=== PATIENT | male | born 1980 | race Caucasian/White ===

== ENCOUNTER 2020-09-12 18:20 | Observation (INO) | payer OTHER ==
--- NOTE | 2020-09-12 19:04 | XR ---
EXAMINATION TYPE: XR chest 2V DATE OF EXAM: 09/12/2020 COMPARISON: NONE HISTORY: Dysrhythmia TECHNIQUE: 3 views FINDINGS: There is no heart failure nor confluent pneumonic infiltrate. Costophrenic angles are clear . There are no hilar masses. There are chest leads. Bony thorax is intact. IMPRESSION: Normal chest.
[2020-09-12 20:50] LABS: Basophils # (A) 0.1 k/uL (0-0.2); Basophils % (A) 1 %; Eosinophils # (A) 0.5 k/uL (0-0.7); Eosinophils % (A) 4 %; HCT 49.6 % (39.0-53.0); HGB 17.5 gm/dL (13.0-17.5); Lymphocytes % (A) 37 %; MCH 31.9 pg (25.0-35.0); MCHC 35.4 g/dL (31.0-37.0); MCV 90.1 fL (80.0-100.0); Mean Platelet Volume 7.2; Monocytes # (A) 0.7 k/uL (0-1.0); Monocytes % (A) 6 %; Neutrophils # (A) 5.3 k/uL (1.3-7.7); Neutrophils % (A) 49 %; Platelet Count 336 k/uL (150-450); RDW 12.4 % (11.5-15.5); WBC 10.8 k/uL (3.8-10.6)
[2020-09-12 20:58] LABS: ALT 31 U/L (4-49); AST 36 U/L (17-59); African American GFR (CKD) >90 (>60 ml/min/1.73 sqM); Alkaline Phosphatase 66 U/L (38-126); Anion Gap 11 mmol/L; Blood Urea Nitrogen 15 mg/dL (9-20); Calcium 9.7 mg/dL (8.4-10.2); Carbon Dioxide 25 mmol/L (22-30); Chloride 105 mmol/L (98-107); Glucose 86 mg/dL (74-99); Magnesium 1.9 mg/dL (1.6-2.3); Non-African American GFR(CKD) 89 (>60 ml/min/1.73 sqM); Potassium 3.9 mmol/L (3.5-5.1); Sodium 141 mmol/L (137-145); Total Bilirubin 0.4 mg/dL (0.2-1.3); Total Protein 8.1 g/dL (6.3-8.2)
[2020-09-12 21:07] LABS: INR 0.9 (<1.2); Partial Thromboplastin Time 22.7 sec (22.0-30.0); Prothrombin Time 9.5 sec (9.0-12.0)
[2020-09-12] MEDS ORDERED: DILTIAZEM DRIP BOLUS FROM BAG 1 MG SOLN IV ONE (21:20)
[2020-09-12] MEDS ORDERED: HEPARIN SODIUM 1,000 UN/ML (10ML VL) IV ONE (21:20)
[2020-09-12] MEDS ORDERED: METOPROLOL TARTRATE 5 MG/5 ML VIAL IVP STA (21:20)
[2020-09-12] MEDS ORDERED: NALOXONE 0.4 MG/ML 1 ML VIAL IV PRN (21:34)
--- NOTE | 2020-09-12 21:34 | ED ---
Arrhythmia/Palpitations HPI - General Chief Complaint: Arrhythmia/Palpitations Stated Complaint: palpitations Time Seen by Provider: 09/12/20 18:25 Source: patient Mode of arrival: wheelchair Limitations: no limitations - History of Present Illness Initial Comments: She is a 39-year-old male with past history of A. fib who presents emergency Department with palpitations. Patient states he has a history of A. fib. 6 years ago he had an episode which took a [facility]. He was diagnosed with A. fib and started on atenolol. He was supposed to be cardioverted however reports that he came out of the rhythm spontaneously. He saw a diesel engine fitter at that time and has taken his atenolol 25 mg twice daily ever since then. He is only on an aspirin daily. States that he hasn't had any further issues with abnormal heart rhythm. He has not followed up with cardiology. Reports that approximately 20 minutes prior to hospital arrival he began having palpitations which felt like A. fib again. Denies missing any doses of his medications. indications to anticoagulation. No chest pain. No history of coronary disease. No other alleviating, precipitating or modifying factors - Related Data Home Medications Medication Instructions Recorded Confirmed Aspirin EC [Ecotrin Low Dose] 81 mg PO HS 09/12/20 09/12/20 atenoloL [Atenolol] 25 mg PO BID 09/12/20 09/12/20 Allergies Allergy/AdvReac Type Severity Reaction Status Date / Time No Known Allergies Allergy Verified 09/12/20 21:43 Review of Systems ROS Statement: Those systems with pertinent positive or pertinent negative responses have been documented in the HPI. ROS Other: All systems not noted in ROS Statement are negative. Past Medical History Past Medical History: Atrial Fibrillation History of Any Multi-Drug Resistant Organisms: None Reported Past Surgical History: No Surgical Hx Reported Past Psychological History: Anxiety Smoking Status: Current every day smoker Past Alcohol Use History: Occasional Past Drug Use History: Marijuana General Exam Limitations: no limitations Course Vital Signs 09/12/20 09/12/20 09/12/20 18:23 20:09 23:29 Temperature 97.8 F Pulse Rate 73 106 H 88 Respiratory 18 16 16 Rate Blood Pressure 137/88 133/86 124/85 O2 Sat by Pulse 100 100 98 Oximetry EKG Findings - EKG Comments: EKG Findings:: EKG demonstrates A. fib with rapid ventricular rate. Rate of 114. QRS 76. QTC of 383. No acute ST segment elevations or depressions Medical Decision Making - Medical Decision Making Upon arrival the patient was placed into room 16. Thorough history and physical exam was performed. Laboratory studies were obtained. Patient sent for chest x-ray. He does have a consistent rate of anywhere between 105 and 125. Patient is started on a Cardizem drip at 5 mg/hr with a bolus of 10 mg. recommended hospital admission for which the patient did agree to. He has no contraind ications to endocrine patient therefore he is placed on a heparin drip. Patient admitted. Spoke with Naomi from [facility] who agreed to admit the patient. Patient awaiting a bed on the floor. - Lab Data Result diagrams: 09/12/20 18:42 09/12/20 18:42 Lab Results 09/12/20 09/12/20 09/12/20 Range/Units 18:42 18:42 18:42 WBC 10.8 H (3.8-10.6) k/uL RBC 5.50 (4.30-5.90) m/uL Hgb 17.5 (13.0-17.5) gm/dL Hct 49.6 (39.0-53.0) % MCV 90.1 (80.0-100.0) fL MCH 31.9 (25.0-35.0) pg MCHC 35.4 (31.0-37.0) g/dL RDW 12.4 (11.5-15.5) % Plt Count 336 (150-450) k/uL MPV 7.2 Neutrophils % 49 % Lymphocytes % 37 % Monocytes % 6 % Eosinophils % 4 % Basophils % 1 % Neutrophils # 5.3 (1.3-7.7) k/uL Lymphocytes # 4.0 (1.0-4.8) k/uL Monocytes # 0.7 (0-1.0) k/uL Eosinophils # 0.5 (0-0.7) k/uL Basophils # 0.1 (0-0.2) k/uL PT 9.5 (9.0-12.0) sec INR 0.9 (<1.2) APTT 22.7 (22.0-30.0) sec Sodium 141 (137-145) mmol/L Potassium 3.9 (3.5-5.1) mmol/L Chloride 105 (98-107) mmol/L Carbon Dioxide 25 (22-30) mmol/L Anion Gap 11 mmol/L BUN 15 (9-20) mg/dL Creatinine 1.04 (0.66-1.25) mg/dL Est GFR (CKD-EPI)AfAm >90 (>60 ml/min/1.73 sqM) Est GFR (CKD-EPI)NonAf 89 (>60 ml/min/1.73 sqM) Glucose 86 (74-99) mg/dL Calcium 9.7 (8.4-10.2) mg/dL Magnesium 1.9 (1.6-2.3) mg/dL Total Bilirubin 0.4 (0.2-1.3) mg/dL AST 36 (17-59) U/L ALT 31 (4-49) U/L Alkaline Phosphatase 66 (38-126) U/L Troponin I (0.000-0.034) ng/mL Total Protein 8.1 (6.3-8.2) g/dL Albumin 5.0 (3.5-5.0) g/dL TSH 1.870 (0.465-4.680) mIU/L Influenza Type A (PCR) (Not Detectd) Influenza Type B (PCR) (Not Detectd) RSV (PCR) (Not Detectd) SARS-CoV-2 (PCR) (Not Detectd) 09/12/20 09/12/20 Range/Units 18:42 21:35 WBC (3.8-10.6) k/uL RBC (4.30-5.90) m/uL Hgb (13.0-17.5) gm/dL Hct (39.0-53.0) % MCV (80.0-100.0) fL MCH (25.0-35.0) pg MCHC (31.0-37.0) g/dL RDW (11.5-15.5) % Plt Count (150-450) k/uL MPV Neutrophils % % Lymphocytes % % Monocytes % % Eosinophils % % Basophils % % Neutrophils # (1.3-7.7) k/uL Lymphocytes # (1.0-4.8) k/uL Monocytes # (0-1.0) k/uL Eosinophils # (0-0.7) k/uL Basophils # (0-0.2) k/uL PT (9.0-12.0) sec INR (<1.2) APTT (22.0-30.0) sec Sodium (137-145) mmol/L Potassium (3.5-5.1) mmol/L Chloride (98-107) mmol/L Carbon Dioxide (22-30) mmol/L Anion Gap mmol/L BUN (9-20) mg/dL Creatinine (0.66-1.25) mg/dL Est GFR (CKD-EPI)AfAm (>60 ml/min/1.73 sqM) Est GFR (CKD-EPI)NonAf (>60 ml/min/1.73 sqM) Glucose (74-99) mg/dL Calcium (8.4-10.2) mg/dL Magnesium (1.6-2.3) mg/dL Total Bilirubin (0.2-1.3) mg/dL AST (17-59) U/L ALT (4-49) U/L Alkaline Phosphatase (38-126) U/L Troponin I <0.012 (0.000-0.034) ng/mL Total Protein (6.3-8.2) g/dL Albumin (3.5-5.0) g/dL TSH (0.465-4.680) mIU/L Influenza Type A (PCR) Not Detected (Not Detectd) Influenza Type B (PCR) Not Detected (Not Detectd) RSV (PCR) Not Detected (Not Detectd) SARS-CoV-2 (PCR) Not Detected (Not Detectd) Disposition Clinical Impression: Atrial fibrillation with RVR Disposition: ADMITTED IP TO THIS HOSP Condition: Stable Is patient prescribed a controlled substance at d/c from ED?: No Decision to Admit Reason: Admit from EC Decision Date: 09/12/20 Decision Time: 21:34
[2020-09-13] MEDS ORDERED: DILTIAZEM 125 MG in SODIUM CHLORIDE 0.9% 100 ML IV SCH ×2
[2020-09-13] MEDS: HEPARIN SOD,PORK IN 0.45% NACL 25,000 UNIT in 0.45% NACL 1 250ML.BAG IV SCH ×2 (01:30→20:04)
[2020-09-13 04:43] LABS: Basophils # (A) 0.1 k/uL (0-0.2); Basophils % (A) 1 %; Eosinophils # (A) 0.5 k/uL (0-0.7); Eosinophils % (A) 5 %; HCT 47.8 % (39.0-53.0); HGB 16.3 gm/dL (13.0-17.5); Lymphocytes # (A) 3.6 k/uL (1.0-4.8); Lymphocytes % (A) 38 %; MCH 30.9 pg (25.0-35.0); MCHC 34.2 g/dL (31.0-37.0); MCV 90.4 fL (80.0-100.0); Mean Platelet Volume 6.6; Monocytes # (A) 0.6 k/uL (0-1.0); Monocytes % (A) 7 %; Neutrophils # (A) 4.4 k/uL (1.3-7.7); Neutrophils % (A) 47 %; Platelet Count 314 k/uL (150-450); RBC 5.28 m/uL (4.30-5.90); RDW 12.5 % (11.5-15.5); WBC 9.4 k/uL (3.8-10.6)
[2020-09-13 05:22] LABS: African American GFR (CKD) >90 (>60 ml/min/1.73 sqM); Anion Gap 5 mmol/L; Blood Urea Nitrogen 14 mg/dL (9-20); Calcium 9.6 mg/dL (8.4-10.2); Carbon Dioxide 26 mmol/L (22-30); Chloride 108 mmol/L (98-107); Glucose 108 mg/dL (74-99); Non-African American GFR(CKD) >90 (>60 ml/min/1.73 sqM); Potassium 4.6 mmol/L (3.5-5.1); Sodium 139 mmol/L (137-145)
[2020-09-13] MEDS: NICOTINE 21MG/24HR PATCH TRANSDERM SCH (08:08)
[2020-09-13] MEDS ORDERED: HEPARIN SODIUM 1,000 UN/ML (10ML VL) IV PRN (09:49)
[2020-09-13] MEDS: atenoloL 25 MG TAB PO SCH ×2 (10:05→20:07)
--- NOTE | 2020-09-13 11:02 | P.HPIM ---
History of Present Illness H&P Date: 09/13/20 Chief Complaint: Palpitations Patient is a 39-year-old male with a known history of paroxysmal atrial fibrillation on atenolol and aspirin for the past 6 years and currently not on follow-up with cardiology as an outpatient came to ER with complaints of palpitations. Patient was diagnosed with atrial fibrillation 6 years ago and is on atenolol 25 mg twice a day. Patient was seen by Dr. Lyons previously. Patient says that he has been anxious about his dog and cat to be taken care of by someone as he is traveling outside.. Yesterday he did not bring in a water and started having palpitations. Palpitations started approximately 20 minutes prior to hospital arrival. No complaints of chest pain. No headache or dizziness or lightheadedness. No nausea vomiting or abdominal pain or diarrhea. No fever no chills. No cough or sputum production. Patient continues to smoke and does drink coffee once daily. Denied any other medical problems. No recent illnesses or sick contacts. Laboratory data reviewed. TSH within normal limits. Review of Systems Constitutional: Patient denies any fever or chills . No generalized weakness or weight loss. Abdomen: Patient denied nausea vomiting and diarrhea and abdominal pain. Cardiovascular: Patient denies any chest pain or short of breath. Patient did have palpitations. Respiratory: patient denied any cough is from production. No shortness of breath Neurologic: Patient denied any numbness or tingling headache. Musculoskeletal: Patient denies any complaints of joint swelling or deformity. Skin: Negative Psychiatric: Negative Endocrine: No heat or cold intolerance. No recent weight gain. Genitourinary: No dysuria or hematuria. All other 14 point ROS negative except the above Past Medical History Past Medical History: Atrial Fibrillation History of Any Multi-Drug Resistant Organisms: None Reported Past Surgical History: No Surgical Hx Reported Past Psychological History: Anxiety Smoking Status: Current every day smoker Past Alcohol Use History: Occasional Past Drug Use History: Marijuana Medications and Allergies Home Medications Medication Instructions Recorded Confirmed Type Aspirin EC [Ecotrin Low Dose] 81 mg PO HS 09/12/20 09/12/20 History atenoloL [Atenolol] 25 mg PO BID 09/12/20 09/12/20 History Allergies Allergy/AdvReac Type Severity Reaction Status Date / Time No Known Allergies Allergy Verified 09/12/20 21:43 Physical Exam Vitals: Vital Signs Temp Pulse Resp BP Pulse Ox 09/13/20 08:03 81 16 111/83 98 09/13/20 05:49 65 16 110/61 09/13/20 03:13 61 16 110/61 09/12/20 23:29 88 16 124/85 98 09/12/20 20:09 106 H 16 133/86 100 09/12/20 18:23 97.8 F 73 18 137/88 100 Intake and Output 09/12/20 09/13/20 09/13/20 22:59 06:59 14:59 Intake Total 85.222 Balance 85.222 Intake: Intake, IV Titration 85.222 Amount Heparin Sod,Pork in 0.45% 85.222 NaCl 25,000 unit In 0.45 % NaCl 1 250ml.bag @ 10.9 UNITS/KG/HR 9.987 mls/hr IV .Q24H [facility] Rx#: [id number] Other: Weight 91.626 kg PHYSICAL EXAMINATION: Patient is lying in the bed comfortably, no acute distress, awake alert and oriented.. HEENT: Normocephalic. Neck is supple. Pupils reactive. Nostrils clear. Oral cavity is moist. Ears reveal no drainage. Neck reveals no JVD, carotid bruits, or thyromegaly. CHEST EXAMINATION: Trachea is central. Symmetrical expansion. Lung faulkner clear to auscultation and percussion. CARDIAC: Normal S1, S2 with no gallops. No murmurs ABDOMEN: Soft. Bowel sounds normal. No organomegaly. No abdominal bruits. Extremities: reveal no edema. No clubbing or cyanosis Neurologically awake, alert, oriented x3 with well-coordinated movements. No focal deficits noted Skin: No rash or skin lesions. Psychiatric: Coperative. Nonsuicidal Musculoskeletal: No joint swelling or deformity. Normal range of motion. Results CBC & Chem 7: 09/13/20 04:25 09/13/20 04:25 Labs: Abnormal Lab Results - Last 24 Hours (Table) 09/12/20 09/13/20 09/13/20 Range/Units 18:42 04:25 08:10 WBC 10.8 H (3.8-10.6) k/uL APTT 32.7 H (22.0-30.0) sec Chloride 108 H (98-107) mmol/L Glucose 108 H (74-99) mg/dL Thrombosis Risk Factor Assmnt - DVT/VTE Prophylaxis DVT/VTE Prophylaxis: Pharmacologic Prophylaxis ordered Assessment and Plan Assessment: Atrial fibrillation with rapid ventricular rate Paroxysmal atrial fibrillation. On atenolol and aspirin at home. Ongoing nicotine addiction Possible anxiety DVT prophylaxis Plan: Patient was initially started on Cardizem drip. Heart rate is better controlled and patient was started back on atenolol 25 mg twice daily and continue with aspirin for anticoagulation. Patient was seen by cardiology. Continue with current management. Cardizem drip has been discontinued. Patient was counseled extensively for smoking cessation. Time with Patient: Greater than 30
--- NOTE | 2020-09-13 11:31 | ECHOF ---
Referral Reason:LV function MEASUREMENTS -------- HEIGHT: 180.3 cm WEIGHT: 91.6 kg BP: RVIDd: 2.8 cm (< 3.3) IVSd: 1.3 cm (0.6 - 1.1) LVIDd: 3.7 cm (3.9 - 5.3) LVPWd: 1.1 cm (0.6 - 1.1) IVSs: 1.7 cm LVIDs: 2.4 cm LVPWs: 1.7 cm LAESV Index (A-L): 19.25 ml/m Ao Diam: 2.8 cm (2.0 - 3.7) AV Cusp: 2.3 cm (1.5 - 2.6) LA Diam: 3.6 cm (2.7 - 3.8) RAP: 5.00 mmHg RVSP: 9.49 mmHg FINDINGS -------- Atrial fibrillation. This was a technically adequate study. The left ventricular size is normal. There is mild concentric left ventricular hypertrophy. Overa ll left ventricular systolic function is normal with, an EF between 55 - 60 %. Left ventricular [place] pressure cannot be estimated due to Atrial fibrillation. The right ventricle is normal in size. The left atrial size is normal. Normal LA size by volume 22+/-6 ml/m2. The right atrial size is normal. The aortic valve is trileaflet and appears structurally normal. The mitral valve is normal. There is trace mitral regurgitation. The tricuspid valve appears structurally normal. Trace tricuspid regurgitation present. Right ely tricular systolic pressure is normal at < 35 mmHg. There is no pulmonic regurgitation present. The aortic root size is normal. IVC Not well visulized. There is no pericardial effusion. CONCLUSIONS -------- 1. The left ventricular size is normal. 2. There is mild concentric left ventricular hypertrophy. 3. Overall left ventricular systolic function is normal with, an EF between 55 - 60 %. 4. Left ventricular fillimg pressure cannot be estimated due to Atrial fibrillation. 5. There is trace mitral regurgitation. 6. Trace tricuspid regurgitation present. 7. There is no pericardial effusion. LEAD TRAINER: Vero Collier RDCS
[2020-09-13] MEDS ORDERED: FLECAINIDE 50 MG TAB PO STA (11:33)
--- NOTE | 2020-09-13 11:40 | P.CRDCN ---
History of Present Illness Consult date: 09/13/20 History of present illness: HISTORY OF PRESENT ILLNESS: This is a 39-year-old male with a past medical history significant for atrial fibrillation, anxiety, and nicotine dependence. Patient used to follow in the office with Dr. Pearson but patient states he has not been to the office in over 5 years. We have been asked to see the patient in consultation for palpitations. Patient examined at the bedside in the emergency room. Patient reports he has a history of atrial fibrillation and he is prescribed atenolol. He states he has not had any problems with palpitations in the past few years. He states yesterday he began feeling his heart racing and felt as though he might back in atrial fibrillation so he came to the emergency room for further evaluation. Patient was found to be in 8 to her ablation with uncontrolled ventricular rate. Patient was started on IV heparin and also IV Cardizem. At the time of examination the patient remains atrophic relation with heart rate in the 70-80s. EKG reveals atrial fibrillation with RVR Chest xray negative for acute process Laboratory data: WBC 9.4. Hemoglobin 16.3. Platelet count 314. Sodium 139. Potassium 4.6. BUN 14. Creatinine 0.84. Troponin negative 3. Current home cardiac medications include aspirin 81 mg daily and atenolol 25 mg twice a day Echocardiogram completed reveals ejection fraction 55-60%, trace mitral regurgitation, and trace tricuspid regurgitation REVIEW OF SYSTEMS: At the time of my exam: CONSTITUTIONAL: Denies fever or chills. HEENT: Denies blurred vision, vision changes, or eye pain. Denies hemoptysis CARDIOVASCULAR: Denies chest pain. Denies orthopnea. Denies PND. Denies palpitations RESPIRATORY: Denies shortness of breath. GASTROINTESTINAL: Denies abdominal pain. Denies nausea or vomiting. HEMATOLOGIC: Denies bleeding disorders. GENITOURINARY: Denies any blood in urine. SKIN: Denies pruitis. Denies rash. PHYSICAL EXAM: VITAL SIGNS: Reviewed. GENERAL: Well-developed in no acute distress. HEENT: Head is normocephalic. Pupils are equal, round. Sclerae anicteric. Mucous membranes of the mouth are moist. Neck supple. No JVD or thyromegaly LUNGS: Respirations even and unlabored. Lungs essentially clear to auscultation bilaterally. HEART: Irregular rate and rhythm. S1 and S2 heard. ABDOMEN: Soft. Nondistended. Nontender. EXTREMITIES: Normal range of motion. No clubbing or cyanosis. Peripheral pulses intact. No lower extremity edema NEUROLOGIC: Awake and alert. Oriented x 3. ASSESSMENT: Palpitations Paroxysmal atrial fibrillation with RVR Anxiety Nicotine dependence PLAN: Continue telemetry monitoring Discontinue cardizem drip Continue atenolol Patient to receive 1 time dose of 300 mg of flecainide If patient does not convert to sinus mechanism, he will undergo cardioversion tomorrow with Dr. Cobian Continue IV heparin for possible cardioversion tomorrow Further recommendations pending patient course Nurse practitioner note has been reviewed by physician. Signing provider agrees with the documented findings, assessment, and plan of care. Past Medical History Past Medical History: Atrial Fibrillation History of Any Multi-Drug Resistant Organisms: None Reported Past Surgical History: No Surgical Hx Reported Past Psychological History: Anxiety Smoking Status: Current every day smoker Past Alcohol Use History: Occasional Past Drug Use History: Marijuana Medications and Allergies Home Medications Medication Instructions Recorded Confirmed Type Aspirin EC [Ecotrin Low Dose] 81 mg PO HS 09/12/20 09/12/20 History atenoloL [Atenolol] 25 mg PO BID 09/12/20 09/12/20 History Allergies Allergy/AdvReac Type Severity Reaction Status Date / Time No Known Allergies Allergy Verified 09/12/20 21:43 Physical Exam Vitals: Vital Signs Temp Pulse Resp BP Pulse Ox 09/13/20 08:03 81 16 111/83 98 09/13/20 05:49 65 16 110/61 09/13/20 03:13 61 16 110/61 09/12/20 23:29 88 16 124/85 98 09/12/20 20:09 106 H 16 133/86 100 09/12/20 18:23 97.8 F 73 18 137/88 100 Intake and Output 09/12/20 09/13/20 09/13/20 22:59 06:59 14:59 Intake Total 85.222 Balance 85.222 Intake: Intake, IV Titration 85.222 Amount Heparin Sod,Pork in 0.45% 85.222 NaCl 25,000 unit In 0.45 % NaCl 1 250ml.bag @ 10.9 UNITS/KG/HR 9.987 mls/hr IV .Q24H [facility] Rx#: [id number] Other: Weight 91.626 kg Results 09/13/20 04:25 09/13/20 04:25 Cardiac Enzymes 09/12/20 09/12/20 09/12/20 Range/Units 18:42 18:42 22:17 AST 36 (17-59) U/L Troponin I <0.012 <0.012 (0.000-0.034) ng/mL 09/13/20 Range/Units 00:57 AST (17-59) U/L Troponin I <0.012 (0.000-0.034) ng/mL Coagulation 09/12/20 09/13/20 Range/Units 18:42 08:10 PT 9.5 (9.0-12.0) sec APTT 22.7 32.7 H (22.0-30.0) sec CBC 09/12/20 09/13/20 Range/Units 18:42 04:25 WBC 10.8 H 9.4 (3.8-10.6) k/uL RBC 5.50 5.28 (4.30-5.90) m/uL Hgb 17.5 16.3 (13.0-17.5) gm/dL Hct 49.6 47.8 (39.0-53.0) % Plt Count 336 314 (150-450) k/uL Comprehensive Metabolic Panel 09/12/20 09/13/20 Range/Units 18:42 04:25 Sodium 141 139 (137-145) mmol/L Potassium 3.9 4.6 (3.5-5.1) mmol/L Chloride 105 108 H (98-107) mmol/L Carbon Dioxide 25 26 (22-30) mmol/L BUN 15 14 (9-20) mg/dL Creatinine 1.04 0.84 (0.66-1.25) mg/dL Glucose 86 108 H (74-99) mg/dL Calcium 9.7 9.6 (8.4-10.2) mg/dL AST 36 (17-59) U/L ALT 31 (4-49) U/L Alkaline Phosphatase 66 (38-126) U/L Total Protein 8.1 (6.3-8.2) g/dL Albumin 5.0 (3.5-5.0) g/dL Current Medications Generic Name Dose Route Start Last Admin Trade Name Freq PRN Reason Stop Dose Admin Atenolol 25 mg 09/13/20 09:00 09/13/20 10:05 Atenolol 25 Mg Tab PO 25 mg BID [facility] Administration Heparin Sodium (Porcine) 0 unit 09/13/20 09:49 09/13/20 09:58 Heparin Sodium 1,000 Un/Ml (10ml Vl) IV 4,580 unit PER PROTOCOL PRN Administration Low PTT Protocol Heparin Sodium/Sodium Chloride 250 mls @ 9.987 mls/hr 09/12/20 21:30 09/13/20 10:02 25,000 unit/ Sodium Chloride IV 13.9 units/kg/hr .Q24H [facility] 12.736 mls/hr Titration Protocol 10.9 UNITS/KG/HR Diltiazem HCl 125 mg/ Sodium 125 mls @ 5 mls/hr 09/13/20 00:00 09/13/20 00:52 Chloride IV 5 mg/hr .Q24H [facility] 5 mls/hr Administration 5 MG/HR Naloxone HCl 0.2 mg 09/12/20 21:34 Naloxone 0.4 Mg/Ml 1 Ml Vial IV Q2M PRN Opioid Reversal Nicotine 1 patch 09/13/20 09:00 09/13/20 08:08 Nicotine 21mg/24hr Patch TRANSDERM 1 patch DAILY [facility] Administration Intake and Output 09/12/20 09/13/20 09/13/20 22:59 06:59 14:59 Intake Total 85.222 Balance 85.222 Intake: Intake, IV Titration 85.222 Amount Heparin Sod,Pork in 0.45% 85.222 NaCl 25,000 unit In 0.45 % NaCl 1 250ml.bag @ 10.9 UNITS/KG/HR 9.987 mls/hr IV .Q24H [facility] Rx#: [id number] Other: Weight 91.626 kg 09/13/20 04:25 09/13/20 04:25
[2020-09-14] MEDS: NICOTINE 21MG/24HR PATCH TRANSDERM SCH (07:24)
[2020-09-14] MEDS: atenoloL 25 MG TAB PO SCH (07:24)
[2020-09-14 08:18] VITALS: BP 126/80; PULSE 78; RESP 17; TEMP 97.8
--- NOTE | 2020-09-14 14:03 | P.PN ---
Subjective Progress Note Date: 09/14/20 HISTORY OF PRESENT ILLNESS: This is a 39-year-old male with a past medical history significant for atrial fibrillation, anxiety, and nicotine dependence. Patient used to follow in the office with Dr. Pearson but patient states he has not been to the office in over 5 years. We have been asked to see the patient in consultation for palpitations. Patient examined at the bedside in the emergency room. Patient reports he has a history of atrial fibrillation and he is prescribed atenolol. He states he has not had any problems with palpitations in the past few years. He states yest erday he began feeling his heart racing and felt as though he might back in atrial fibrillation so he came to the emergency room for further evaluation. Patient was found to be in 8 to her ablation with uncontrolled ventricular rate. Patient was started on IV heparin and also IV Cardizem. At the time of examination the patient remains atrophic relation with heart rate in the 70-80s. EKG reveals atrial fibrillation with RVR Chest xray negative for acute process Laboratory data: WBC 9.4. Hemoglobin 16.3. Platelet count 314. Sodium 139. Potassium 4.6. BUN 14. Creatinine 0.84. Troponin negative 3. Current home cardiac medications include aspirin 81 mg daily and atenolol 25 mg twice a day Echocardiogram completed reveals ejection fraction 55-60%, trace mitral regurgitation, and trace tricuspid regurgitation 09/14/2020 Patient examined this point the bedside. Patient converted to sinus mechanism yesterday after receiving flecainide. He remains in sinus mechanism this morning. He denies chest pain or pressure. Denies shortness of breath. PHYSICAL EXAM: VITAL SIGNS: Reviewed. GENERAL: Well-developed in no acute distress. HEENT: Head is normocephalic. Pupils are equal, round. Sclerae anicteric. Mucous membranes of the mouth are moist. Neck supple. No JVD or thyromegaly LUNGS: Respirations even and unlabored. Lungs essentially clear to auscultation bilaterally. HEART: regular rate and rhythm. S1 and S2 heard. ABDOMEN: Soft. Nondistended. Nontender. EXTREMITIES: Normal range of motion. No clubbing or cyanosis. Peripheral pulses intact. No lower extremity edema NEUROLOGIC: Awake and alert. Oriented x 3. ASSESSMENT: Palpitations Paroxysmal atrial fibrillation with RVR Anxiety Nicotine dependence PLAN: Continue current cardiac medications Patient is stable for discharge from a cardiac standpoint. He is to follow up on an outpatient basis Nurse practitioner note has been reviewed by physician. Signing provider agrees with the documented findings, assessment, and plan of care. Objective - Vital Signs Vital signs: Vital Signs Temp 97.8 F 09/14/20 07:00 Pulse 78 09/14/20 07:00 Resp 17 09/14/20 07:00 BP 126/80 09/14/20 07:00 Pulse Ox 96 09/14/20 07:00 Intake & Output 09/13/20 09/14/20 09/14/20 18:59 06:59 18:59 Intake Total 85.222 Balance 85.222 Weight 91.626 kg Intake: Intake, IV Titration 85.222 Amount Heparin Sod,Pork in 0.45% 85.222 NaCl 25,000 unit In 0.45 % NaCl 1 250ml.bag @ 10.9 UNITS/KG/HR 9.987 mls/hr IV .Q24H [facility] Rx#: [id number] Other: Voiding Method Toilet Toilet # Voids 1 - Labs CBC & Chem 7: 09/13/20 04:25 09/13/20 04:25
== END 2020-09-14 09:21 | disposition home or self-care (01) ==
LOC: EC 18:20 → 6NMEDSUR 21:36
PROVIDERS: ADMIT Hospitalist; ATTEND Hospitalist
DX: I48.0 Paroxysmal atrial fibrillation (principal); F41.9 Anxiety disorder, unspecified; F17.200 Nicotine dependence, unspecified, uncomplicated; Z79.82 Long term (current) use of aspirin; Z79.899 Other long term (current) drug therapy; Z20.822 Contact with and (suspected) exposure to COVID-19; Z86.59 Personal history of other mental and behavioral disorders
CPT/HCPCS: 96368; 96365; 96366; 96367; 99285; 36415; 93005; 93306; 80053; 80048; 84443; 83735; 84484 ×2; 85025 ×2; 85610; 85730 ×2; 87636; 71046; G0378 ×3; S4990; J1644 ×2

== ENCOUNTER 2021-11-30 09:33 | Inpatient (IN) | payer OTHER ==
[2021-11-30] MEDS ORDERED: SODIUM CHLORIDE 0.9% 1,000 ML IV STA (10:12)
[2021-11-30] MEDS ORDERED: DILTIAZEM DRIP BOLUS FROM BAG 1 MG SOLN IV ONE (10:12)
[2021-11-30] MEDS ORDERED: HEPARIN SODIUM 1,000 UN/ML (10ML VL) IV ONE (10:13)
--- NOTE | 2021-11-30 10:15 | ED ---
General Adult HPI - General Chief complaint: Arrhythmia/Palpitations Stated complaint: A fib Time Seen by Provider: 11/30/21 09:53 Source: patient Mode of arrival: ambulatory Limitations: no limitations - History of Present Illness Initial comments: Dictation was produced using [employer] dictation software. please excuse any grammatical, word or spelling errors. Chief Complaint: 40-year-old male presents to emergency room for palpitations History of Present Illness: 40-year-old male past medical history of atrial fibrillation. Patient states that he's been diagnosed with paroxysmal A. fib 7 years ago. Patient was hospitalized 3-4 times for A. fib. Patient does not take any anticoagulation medications. Takes 25 mg of atenolol daily area patient does have established care with biomedical scientist. Patient denies any chest pain or shortness of breath. Patient believes that his symptoms began at 8 AM this morning. The ROS documented in this emergency department record has been reviewed and confirmed by me. Those systems with pertinent positive or negative responses have been documented in the HPI. All other systems are other negative and/or noncontributory. PHYSICAL EXAM: General Impression: Alert and oriented x3, not in acute distress HEENT: Normocephalic atraumatic, extra-ocular movements intact, pupils equal and reactive to light bilaterally, mucous membranes moist. Cardiovascular: Heart regular rate and rhythm Chest: Able to complete full sentences, no retractions, no tachypnea Abdomen: abdomen soft, non-tender, non-distended, no organomegaly Musculoskeletal: Pulses present and equal in all extremities, no peripheral edema Motor: no focal deficits noted Neurological: CN II-XII grossly intact, no focal motor or sensory deficits noted Skin: Intact with no visualized rashes Psych: Normal affect and mood ED course: 40-year-old well-appearing male presents emergency department for atrial fibrillation. Vital signs upon arrival shows findings within acceptable limits. EKG shows heart rate of 123. Patient on monitor is in A. fib with rapid ventricular rate with average rate between 120 and 140. Laboratory evaluation obtained. CBC metabolic panel is unremarkable. Troponin is negative. Patient started Cardizem and heparin. Patient reevaluated at bedside after several minutes and Cardizem with good rate control. Patient be admitted with consultation cardiology. EKG interpretation: Ventricular rate 123, A. fib with RVR, QS 80, QTC 363. , no QTC prolongation, no ST or T-wave changes noted. EKG consistent with atrial fibrillation with RVR. No signs of ischemia or infarction. - Related Data Home Medications Medication Instructions Recorded Confirmed Aspirin EC [Ecotrin Low Dose] 81 mg PO HS 09/12/20 11/30/21 atenoloL 25 mg PO BID 09/12/20 11/30/21 Allergies Allergy/AdvReac Type Severity Reaction Status Date / Time No Known Allergies Allergy Verified 11/30/21 10:34 Review of Systems ROS Statement: Those systems with pertinent positive or pertinent negative responses have been documented in the HPI. ROS Other: All systems not noted in ROS Statement are negative. Past Medical History Past Medical History: Atrial Fibrillation Additional Past Medical History / Comment(s): Hx of Afib with conversion to NSR approximately 5-6 yrs ago. History of Any Multi-Drug Resistant Organisms: None Reported Past Surgical History: No Surgical Hx Reported Past Anesthesia/Blood Transfusion Reactions: Unable to Obtain Additional Past Anesthesia/Blood Transfusion Reaction / Comment(s): Pt has never had anesthesia. Past Psychological History: Anxiety Smoking Status: Current every day smoker Past Alcohol Use History: Occasional Past Drug Use History: Marijuana - Past Family History Mother Family Medical History: No Reported History Additional Family Medical History / Comment(s): Mother is helathy Father Family Medical History: Blood Disorder Additional Family Medical History / Comment(s): Father had a blood clotting disorder. He had MIs. He at the age of 62 yrs. General Exam Limitations: no limitations Course Vital Signs 11/30/21 11/30/21 11/30/21 09:42 10:07 10:37 Temperature 98.2 F Pulse Rate 74 140 H 123 H Respiratory 18 20 18 Rate Blood Pressure 127/78 140/90 117/103 O2 Sat by Pulse 97 98 98 Oximetry 11/30/21 11:14 Temperature Pulse Rate 90 Respiratory 16 Rate Blood Pressure 140/90 O2 Sat by Pulse 98 Oximetry Medical Decision Making - Lab Data Result diagrams: 11/30/21 10:15 11/30/21 10:15 Lab Results 11/30/21 11/30/21 11/30/21 Range/Units 10:15 10:15 10:15 WBC 6.8 (3.8-10.6) k/uL RBC 5.68 (4.30-5.90) m/uL Hgb 16.8 (13.0-17.5) gm/dL Hct 51.3 (39.0-53.0) % MCV 90.4 (80.0-100.0) fL MCH 29.6 (25.0-35.0) pg MCHC 32.7 (31.0-37.0) g/dL RDW 12.4 (11.5-15.5) % Plt Count 346 (150-450) k/uL MPV 7.0 Neutrophils % 56 % Lymphocytes % 30 % Monocytes % 7 % Eosinophils % 4 % Basophils % 1 % Neutrophils # 3.8 (1.3-7.7) k/uL Lymphocytes # 2.0 (1.0-4.8) k/uL Monocytes # 0.5 (0-1.0) k/uL Eosinophils # 0.3 (0-0.7) k/uL Basophils # 0.1 (0-0.2) k/uL Sodium 139 (137-145) mmol/L Potassium 4.9 (3.5-5.1) mmol/L Chloride 106 (98-107) mmol/L Carbon Dioxide 24 (22-30) mmol/L Anion Gap 9 mmol/L BUN 14 (9-20) mg/dL Creatinine 0.94 (0.66-1.25) mg/dL Est GFR (CKD-EPI)AfAm >90 (>60 ml/min/1.73 sqM) Est GFR (CKD-EPI)NonAf >90 (>60 ml/min/1.73 sqM) Glucose 109 H (74-99) mg/dL Calcium 9.7 (8.4-10.2) mg/dL Magnesium 2.1 (1.6-2.3) mg/dL Troponin I <0.012 (0.000-0.034) ng/mL Critical Care Time Critical Care Time: Yes Total Critical Care Time: 33 Disposition Clinical Impression: Atrial fibrillation with RVR Disposition: ADMITTED IP TO THIS HOSP Condition: Fair Referrals: Angel Navarro MD [Primary Care Provider] - 1-2 days Decision Time: 11:33
[2021-11-30 10:25] LABS: Basophils # (A) 0.1 k/uL (0-0.2); Basophils % (A) 1 %; Eosinophils # (A) 0.3 k/uL (0-0.7); Eosinophils % (A) 4 %; HCT 51.3 % (39.0-53.0); HGB 16.8 gm/dL (13.0-17.5); Lymphocytes % (A) 30 %; MCH 29.6 pg (25.0-35.0); MCHC 32.7 g/dL (31.0-37.0); MCV 90.4 fL (80.0-100.0); Monocytes # (A) 0.5 k/uL (0-1.0); Monocytes % (A) 7 %; Neutrophils # (A) 3.8 k/uL (1.3-7.7); Neutrophils % (A) 56 %; Platelet Count 346 k/uL (150-450); RBC 5.68 m/uL (4.30-5.90); RDW 12.4 % (11.5-15.5); WBC 6.8 k/uL (3.8-10.6)
[2021-11-30] MEDS: HEPARIN SOD,PORK IN 0.45% NACL 25,000 UNIT in 0.45% NACL 1 250ML.BAG IV SCH (10:27)
[2021-11-30] MEDS: DILTIAZEM 125 MG in SODIUM CHLORIDE 0.9% 100 ML IV SCH (10:40)
[2021-11-30 10:44] LABS: African American GFR (CKD) >90 (>60 ml/min/1.73 sqM); Anion Gap 9 mmol/L; Blood Urea Nitrogen 14 mg/dL (9-20); Calcium 9.7 mg/dL (8.4-10.2); Carbon Dioxide 24 mmol/L (22-30); Chloride 106 mmol/L (98-107); Glucose 109 mg/dL (74-99); Magnesium 2.1 mg/dL (1.6-2.3); Non-African American GFR(CKD) >90 (>60 ml/min/1.73 sqM); Potassium 4.9 mmol/L (3.5-5.1); Sodium 139 mmol/L (137-145)
[2021-11-30] MEDS ORDERED: NALOXONE 0.4 MG/ML 1 ML VIAL IV PRN (11:21)
--- NOTE | 2021-11-30 11:54 | XR ---
EXAMINATION TYPE: XR chest 1V portable DATE OF EXAM: 11/30/2021 COMPARISON: 09/12/2020 HISTORY: Heart palpitations TECHNIQUE: Single frontal view of the chest is obtained. FINDINGS: Heart size normal. No overt failure. Biapical pleural. No pleural effusion. No pneumothora x. Biapical pleural thickening. Mild hyperinflation. IMPRESSION: No acute process.
--- NOTE | 2021-11-30 13:09 | P.CRDCN ---
History of Present Illness History of present illness: This is a 40-year-old male with a past medical history significant for paroxysmal atrial fibrillation, anxiety, and nicotine dependence. Patient used to follow in the office with Dr. Pearson, last seen in 2013, He currently does not follow with a room service attendant. We have been asked to see the patient in consultation for atrial fibrillation with RVR. Patient presents to the ER with complaint of palpitations. 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 He states after this he began to have symptoms of palpitations. He states his symptoms are similar to when he's been in A. fib before and decided to present to the emergency department for further evaluation. Denies any shortness of breath, chest pain, lightheadedness, dizziness, syncope or near syncope. Denies history of CAD, [place], Stroke, Diabetes, Hypertension. He currently smokes marijuana and cigarettes 1 PPD. He occasionally drinks alcohol. DIAGNOSTICS: EKG reveals atrial fibrillation with RVR hr 123 Chest xray negative for acute process Laboratory data: CBC unremarkable, troponin negative, sodium 139, potassium 4.9, BUN 14, serum creatinine 0.9 Current home cardiac medications include aspirin 81 mg daily and atenolol 25 mg twice a day Echocardiogram 09/2020 revealed ejection fraction 55-60%, trace mitral regurgitation, and trace tricuspid regurgitation REVIEW OF SYSTEMS: At the time of my exam: CONSTITUTIONAL: Denies fever or chills. HEENT: Denies blurred vision, vision changes, or eye pain. Denies hemoptysis CARDIOVASCULAR: Denies chest pain. Denies orthopnea. Denies PND. Reports palpitations RESPIRATORY: Denies shortness of breath. GASTROINTESTINAL: Denies abdominal pain. Denies nausea or vomiting. HEMATOLOGIC: Denies bleeding disorders. GENITOURINARY: Denies any blood in urine. SKIN: Denies pruitis. Denies rash. PHYSICAL EXAM: VITAL SIGNS: Reviewed. GENERAL: Well-developed in no acute distress. HEENT: Head is normocephalic. Pupils are equal, round. Sclerae anicteric. Mucous membranes of the mouth are moist. Neck supple. No JVD or thyromegaly LUNGS: Respirations even and unlabored. Lungs essentially clear to auscultation bilaterally. HEART: Irregular rate and rhythm. S1 and S2 heard. ABDOMEN: Soft. Nondistended. Nontender. EXTREMITIES: Normal range of motion. No clubbing or cyanosis. Peripheral pulses intact. No lower extremity edema NEUROLOGIC: Awake and alert. Oriented x 3. ASSESSMENT: Palpitations Paroxysmal atrial fibrillation with RVR [id number] score 0 Anxiety Nicotine dependence PLAN: Continue IV Cardizem Continue telemetry monitoring Continue atenolol Continue IV heparin NPO after midnight if cardioversion is indicated Further recommendations pending patient course Nurse practitioner note has been reviewed by physician. Signing provider agrees with the documented findings, assessment, and plan of care. Past Medical History Past Medical History: Atrial Fibrillation Additional Past Medical History / Comment(s): Hx of Afib with conversion to NSR approximately 5-6 yrs ago. History of Any Multi-Drug Resistant Organisms: None Reported Past Surgical History: No Surgical Hx Reported Past Anesthesia/Blood Transfusion Reactions: Unable to Obtain Additional Past Anesthesia/Blood Transfusion Reaction / Comment(s): Pt has never had anesthesia. Past Psychological History: Anxiety Smoking Status: Current every day smoker Past Alcohol Use History: Occasional Past Drug Use History: Marijuana - Past Family History Mother Family Medical History: No Reported History Additional Family Medical History / Comment(s): Mother is helathy Father Family Medical History: Blood Disorder Additional Family Medical History / Comment(s): Father had a blood clotting disorder. He had MIs. He at the age of 62 yrs. Medications and Allergies Home Medications Medication Instructions Recorded Confirmed Type Aspirin EC [Ecotrin Low Dose] 81 mg PO HS 09/12/20 11/30/21 History atenoloL 25 mg PO BID 09/12/20 11/30/21 History Allergies Allergy/AdvReac Type Severity Reaction Status Date / Time No Known Allergies Allergy Verified 11/30/21 10:34 Physical Exam Vitals: Vital Signs Temp Pulse Resp BP Pulse Ox 11/30/21 11:14 90 16 140/90 98 11/30/21 10:37 123 H 18 117/103 98 11/30/21 10:07 140 H 20 140/90 98 11/30/21 09:42 98.2 F 74 18 127/78 97 Intake and Output 11/29/21 11/30/21 11/30/21 22:59 06:59 14:59 Other: Weight 93.123 kg Results 11/30/21 10:15 11/30/21 10:15 Cardiac Enzymes 11/30/21 Range/Units 10:15 Troponin I <0.012 (0.000-0.034) ng/mL CBC 11/30/21 Range/Units 10:15 WBC 6.8 (3.8-10.6) k/uL RBC 5.68 (4.30-5.90) m/uL Hgb 16.8 (13.0-17.5) gm/dL Hct 51.3 (39.0-53.0) % Plt Count 346 (150-450) k/uL Comprehensive Metabolic Panel 11/30/21 Range/Units 10:15 Sodium 139 (137-145) mmol/L Potassium 4.9 (3.5-5.1) mmol/L Chloride 106 (98-107) mmol/L Carbon Dioxide 24 (22-30) mmol/L BUN 14 (9-20) mg/dL Creatinine 0.94 (0.66-1.25) mg/dL Glucose 109 H (74-99) mg/dL Calcium 9.7 (8.4-10.2) mg/dL Current Medications Generic Name Dose Route Start Last Admin Trade Name Freq PRN Reason Stop Dose Admin Heparin Sodium (Porcine) 0 unit 11/30/21 10:13 Heparin Sodium 1,000 Un/Ml (10ml Vl) IV PER PROTOCOL PRN Low PTT Protocol Diltiazem HCl 125 mg/ Sodium 125 mls @ 10 mls/hr 11/30/21 10:15 11/30/21 10 :40 Chloride IV 5 mg/hr .[id number] [place] 5 mls/hr Administration 10 MG/HR Heparin Sodium/Sodium Chloride 250 mls @ 10 mls/hr 11/30/21 10:15 11/30/21 10:27 25,000 unit/ Sodium Chloride IV 10.738 units/kg/hr .Q24H [place] 10 mls/hr Administration Protocol 10.738 UNITS/KG/HR Sodium Chloride 1,000 mls @ 20 mls/hr 11/30/21 11:30 Saline 0.9% IV .Q24H [place] Naloxone HCl 0.2 mg 11/30/21 11:21 Naloxone 0.4 Mg/Ml 1 Ml Vial IV Q2M PRN Opioid Reversal Intake and Output 11/29/21 11/30/21 11/30/21 22:59 06:59 14:59 Other: Weight 93.123 kg Patient Weight 12/01/21 06:59 Weight 93.123 kg 11/30/21 10:15 11/30/21 10:15
[2021-11-30] MEDS: SODIUM CHLORIDE 0.9% 1,000 ML IV SCH (13:12)
[2021-11-30] MEDS: atenoloL 25 MG TAB PO SCH ×2 (13:13→21:16)
--- NOTE | 2021-11-30 16:41 | HP ---
HISTORY AND PHYSICAL DATE OF SERVICE: 11/30/2021 CHIEF COMPLAINT: Palpitations. HISTORY OF PRESENT ILLNESS: This 40-year-old gentleman with a past medical history of multiple medical problems, including atrial fibrillation and history of anxiety, being followed by Dr. Navarro in the outpatient setting, was complaining of severe palpitations. The patient came to [facility]. The patient was found to have atrial fibrillation with a fast ventricular rate. Heart rate was in the 140s. The patient was started on Cardizem drip. Patient is being monitored closely. There is no history of any chest pain, headache, loss of consciousness, seizures. PAST MEDICAL HISTORY: Atrial fibrillation. Reviewed. HOME MEDICATIONS: Reviewed. They include atenolol and aspirin. Doses are reviewed. ALLERGIES: NONE. FAMILY HISTORY: No history of heart disease or strokes in the family. SOCIAL HISTORY: History of smoking. REVIEW OF SYSTEMS: Fourteen-point review of systems negative except as mentioned earlier. PHYSICAL EXAMINATION: Pulse is 123, irregular, blood pressurentd_, respiration 18, pulse ox 98% on room air. HEENT: Conjunctivae normal. NECK: No jugular venous distention. CARDIOVASCULAR: S1, S2 muffled. Irregular. RESPIRATION: Breath sounds diminished at the bases. No rhonchi. No crackles. ABDOMEN: Soft, nontender. LEGS: No edema. No swelling. NERVOUS SYSTEM: Higher functions as mentioned earlier. No focal deficit. SKIN: No ulcer, rash, bleeding. JOINTS: No active deforming arthropathy. LYMPHATICS: No lymph node palpable in neck, axillae or groin. LABS: CBC, BMP noted. TSH is normal. ASSESSMENT: 1. Atrial ablation, paroxysmal, with a fast ventricular rate. 2. History of atrial fibrillation. 3. History of anxiety. RECOMMENDATIONS AND DISCUSSION: I recommend to continue current medications, continue with the monitoring, symptomatic treatment. Otherwise, continue with home medications, Cardizem drip, IV heparin. Cardiology consultation. Recent 2D echo showed normal ejection fraction. Prognosis is guarded. Further recommendations to follow. See orders for further details. MMODL / IJN: [id number] / MTDD
[2021-11-30] MEDS: HEPARIN SODIUM 1,000 UN/ML (10ML VL) IV PRN (21:15)
[2021-11-30] MEDS: NICOTINE 14MG/24HR PATCH TRANSDERM SCH (23:22)
[2021-12-01 02:42] LABS: Basophils # (A) 0.1 k/uL (0-0.2); Basophils % (A) 1 %; Eosinophils # (A) 0.4 k/uL (0-0.7); Eosinophils % (A) 5 %; HCT 52.2 % (39.0-53.0); Lymphocytes # (A) 3.4 k/uL (1.0-4.8); Lymphocytes % (A) 42 %; MCH 30.2 pg (25.0-35.0); MCHC 32.6 g/dL (31.0-37.0); MCV 92.6 fL (80.0-100.0); Mean Platelet Volume 6.9; Monocytes # (A) 0.5 k/uL (0-1.0); Monocytes % (A) 6 %; Neutrophils # (A) 3.7 k/uL (1.3-7.7); Neutrophils % (A) 45 %; Platelet Count 289 k/uL (150-450); RBC 5.64 m/uL (4.30-5.90); RDW 12.7 % (11.5-15.5); WBC 8.2 k/uL (3.8-10.6)
[2021-12-01 03:01] LABS: African American GFR (CKD) >90 (>60 ml/min/1.73 sqM); Anion Gap 6 mmol/L; Blood Urea Nitrogen 16 mg/dL (9-20); Calcium 9.3 mg/dL (8.4-10.2); Carbon Dioxide 27 mmol/L (22-30); Chloride 106 mmol/L (98-107); Glucose 97 mg/dL (74-99); Non-African American GFR(CKD) 86 (>60 ml/min/1.73 sqM); Sodium 139 mmol/L (137-145)
[2021-12-01 03:07] LABS: Potassium 5.1 mmol/L (3.5-5.1)
[2021-12-01] MEDS: DILTIAZEM 125 MG in SODIUM CHLORIDE 0.9% 100 ML IV SCH ×2 (03:10→11:08)
[2021-12-01] MEDS: atenoloL 25 MG TAB PO SCH ×2 (08:14→21:50)
[2021-12-01] MEDS: NICOTINE 14MG/24HR PATCH TRANSDERM SCH ×2 (08:52→11:08)
[2021-12-01] MEDS ORDERED: DILTIAZEM 5 MG/ML 5 ML VIAL IVP STA (08:57)
--- NOTE | 2021-12-01 09:02 | CA ---
Transthoracic Echo Report Name: Alec Rivera Age: 40 Gender: M : 1980 Exam Date: 11/30/2021 13:29 Exam Location: [facility] Ht (in): 69 Wt (lb): 205 Ordering Physician: Madison Melendez Attending/Referring Phys: Dock Associate Nadya Pierre RDCS Procedure CPT: Indications: A fib. HR currently controlled Cardiac Hx: Technical Quality: Fair Contrast 1: Total Dose (mL): Contrast 2: Total Dose (mL): MEASUREMENTS (Male / Female) Normal Values 2D ECHO LV Diastolic Diameter PLAX 4.0 cm 4.2 - 5.9 / 3.9 - 5.3 cm LV Systolic Diameter PLAX 2.0 cm IVS Diastolic Thickness 1.3 cm 0.6 - 1.0 / 0.6 - 0.9 cm LVPW Diastolic Thickness 1.2 cm 0.6 - 1.0 / 0.6 - 0.9 cm LV Relative Wall Thickness 0.6 RV Internal Dim ED PLAX 2.8 cm LA Volume 42.3 cm??? 18 - 58 / 22 - 52 cm??? M-MODE Aortic Root Diameter MM 3.7 cm LA Systolic Diameter MM 3.7 cm LA Ao Ratio MM 1.0 AV Cusp Separation MM 2.3 cm DOPPLER AV Peak Velocity 95.9 cm/s AV Peak Gradient 3.7 mmHg TR Peak Velocity 233.7 cm/s TR Peak Gradient 21.8 mmHg Right Ventricular Systolic Press 26.8 mmHg FINDINGS Left Ventricle Mildly increased septal wall thickness. Normal left ventricular systolic function with no obvious regional wall motion abnormalities. Left ventricular ejection fraction is estimated at 55-60 %. Right Ventricle Normal right ventricular size and function. Right ventricular systolic pressure within normal limits. Right Atrium Normal right atrial size. Left Atrium Normal left atrial size. No evidence for an atrial septal defect. Mitral Valve Structurally normal mitral valve. No mitral stenosis, regurgitation or prolapse. Aortic Valve Trileaflet aortic valve. No aortic valve stenosis or regurgitation. Tricuspid Valve Structurally normal tricuspid valve. Mild tricuspid regurgitation. Pulmonic Valve Trace pulmonic regurgitation. Pericardium No pericardial effusion. Aorta Normal size aortic root and proximal ascending aorta. CONCLUSIONS Normal LV size and systolic function with mild concentric LVH. No significant abnormality on the Doppler exam. No pericardial effusion Previewed by: Dr. Wally Wang MD (Electronically Signed) Final Date: 01 December 2021 09:01
--- NOTE | 2021-12-01 11:26 | P.PN ---
Subjective This is a 40-year-old male with a past medical history significant for paroxysmal atrial fibrillation, anxiety, and nicotine dependence. Patient used to follow in the office with Dr. Pearson, last seen in 2013, He currently does not follow with a floral department specialist. We have been asked to see the patient in consultation for atrial fibrillation with RVR. Patient presents to the ER with complaint of palpitations. 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 He states after this he began to have symptoms of palpitations. He states his symptoms are similar to when he's been in A. fib before and decided to present to the emergency department for further evaluation. Denies any shortness of breath, chest pain, lightheadedness, dizziness, syncope or near syncope. Denies history of CAD, [place], Stroke, Diabetes, Hypertension. He currently smokes marijuana and cigarettes 1 PPD. He occasionally drinks alcohol. 12/01/2021 Patient seen and examined at bedside, feeling well, however frustrated that he is still in A fib and missing a family trip to [place]. He continues to be in A fib HR 80s-120s. His cardizem drip was stopped overnight. Echo revealed EF 5560 percent, no significant wall motion or valvular abnormalities. No pericardial effusion PHYSICAL EXAM: VITAL SIGNS: Reviewed. GENERAL: Well-developed in no acute distress. HEENT: Neck supple. No JVD LUNGS: Respirations even and unlabored. Lungs essentially clear to auscultation bilaterally. HEART: Irregular rate and rhythm. S1 and S2 heard. ABDOMEN: Soft. Nondistended. Nontender. EXTREMITIES: Normal range of motion. No clubbing or cyanosis. Peripheral pulses intact. No lower extremity edema NEUROLOGIC: Awake and alert. Oriented x 3. ASSESSMENT: Palpitations Paroxysmal atrial fibrillation with RVR [id number] score 0 Anxiety Nicotine dependence PLAN: Restart IV Cardizem Continue telemetry monitoring Continue atenolol Continue IV heparin NPO after midnight if cardioversion is indicated Further recommendations pending patient course Nurse practitioner note has been reviewed by physician. Signing provider agrees with the documented findings, assessment, and plan of care. Objective - Vital Signs Vital signs: Vital Signs Temp 97.9 F 12/01/21 08:00 Pulse 120 H 12/01/21 08:00 Resp 18 12/01/21 08:00 BP 113/78 12/01/21 08:00 Pulse Ox 97 12/01/21 08:00 FiO2 Intake & Output 11/30/21 12/01/21 12/01/21 18:59 06:59 18:59 Intake Total 236 348.167 Balance 236 348.167 Weight 93.123 kg Intake: Intake, IV Titration 348.167 Amount Heparin Sod,Pork in 0.45% 108.167 NaCl 25,000 unit In 0.45 % NaCl 1 250ml.bag @ 10. 738 UNITS/KG/HR 10 mls/hr IV .Q24H [place] Rx#: [id number] Sodium Chloride 0.9% 1, 240 000 ml @ 20 mls/hr IV . Q24H [place] Rx#:[id number] Oral 236 Other: Voiding Method Toilet - Labs CBC & Chem 7: 12/01/21 02:34 12/01/21 02:34 Labs: Abnormal Lab Results - Last 24 Hours (Table) 12/01/21 Range/Units 02:34 APTT 53.2 H (22.0-30.0) sec
[2021-12-01] MEDS: HEPARIN SOD,PORK IN 0.45% NACL 25,000 UNIT in 0.45% NACL 1 250ML.BAG IV SCH (16:24)
[2021-12-01] MEDS: SODIUM CHLORIDE 0.9% 1,000 ML IV SCH (16:25)
--- NOTE | 2021-12-01 19:29 | P.PN ---
Subjective Progress Note Date: 12/01/21 This is a 40-year-old male who was recently admitted with atrial fibrillation RVR and being closely monitored by cardiology. Patient maintained on IV heparin drip along with Cardizem. Patient was rate controlled until this morning heart rate went up into the 120s and patient was placed back on Cardizem along with heparin with cardiology following. Patient reports he does not follow with a filer repairer in the outpatient setting and does not have any insurance and cannot afford this. Patient is extremely anxious as he was to leave for [place] on a family trip today. Patient also has been smoking approximately 1 pack per day cigarettes and will add nicotine packs and anxiety med as needed. Patient is afebrile and denies chest pain. Patient denies shortness of breath. Review of systems: Constitutional: No reports of fatigue, fever, or chills Cardiovascular: No reports of chest pain, reports palpitations Respiratory: No reports of shortness of breath or cough GI: no reports of nausea, no reports of of vomiting : No reports of dysuria or retention Neurovascular: no reports of weakness All medications have been reviewed Active Medications Alprazolam (Alprazolam 0.25 Mg Tab) 0.25 mg PO TID PRN PRN Reason: Anxiety Atenolol (Atenolol 25 Mg Tab) 25 mg PO BID [facility] Last Admin: 12/01/21 08:14 Dose: 25 mg Heparin Sodium (Porcine) (Heparin Sodium 1,000 Un/Ml (10ml Vl)) 0 unit IV PER PROTOCOL PRN; Protocol PRN Reason: Low PTT Last Admin: 11/30/21 21:15 Dose: 4,000 unit Heparin Sodium/Sodium Chloride (25,000 unit/ Sodium Chloride) 250 mls @ 10 mls/hr IV .Q24H [facility]; Protocol Last Titration: 11/30/21 21:16 Dose: 13.738 units/kg/hr, 12.793 mls/hr Sodium Chloride (Saline 0.9%) 1,000 mls @ 20 mls/hr IV .Q24H [facility] Last Admin: 11/30/21 13:12 Dose: Not Given Diltiazem HCl 125 mg/ Sodium (Chloride) 125 mls @ 5 mls/hr IV .Q24H [facility] Last Admin: 12/01/21 11:08 Dose: 5 mg/hr, 5 mls/hr Naloxone HCl (Naloxone 0.4 Mg/Ml 1 Ml Vial) 0.2 mg IV Q2M PRN PRN Reason: Opioid Reversal Nicotine (Nicotine 14mg/24hr Patch) 1 patch TRANSDERM DAILY [facility] Last Admin: 12/01/21 11:08 Dose: 1 patch PHYSICAL EXAMINATION: GENERAL: The patient is alert and oriented x4, Well developed, well nourished. HEENT: Pupils are round and equally reacting to light. EOMI. no scleral icterus. No conjunctival pallor. Normocephalic, atraumatic. No pharyngeal erythema. No thyromegaly. CARDIOVASCULAR: S1 and S2 muffled, irregular PULMONARY: diminished breath sounds bilaterally with no wheezing or rhonchi noted. ABDOMEN: soft. Nontender on exam. obese. non-distended, normoactive bowel sounds. No palpable organomegaly. MUSCULOSKELETAL: No joint swelling or deformity. EXTREMITIES: No cyanosis, clubbing, or pedal edema. NEUROLOGICAL: Gross neurological examination did not reveal any focal deficits. SKIN: No rashes. Assessment: Atrial fibrillation paroxysmal with a fast ventricular rate History of atrial fibrillation history of anxiety Continued ongoing nicotine dependence Continued arrow on a use GI prophylaxis DVT prophylaxis Full code Plan: Recommend to continue with current medications and management cardiology following. Patient continues to be in atrial fibrillation with uncontrolled rate and being placed back on heparin along with IV Cardizem. Patient takes atenolol normally and medications are being adjusted per cardiology. Patient is extremely anxious and would like to go home today although was not rate control led at this time. Will add low-dose Xanax as needed and also encourage the patient to use the nicotine patch as he was previously refusing it. Patient is a one pack per day smoker. Recommend repeat labs in the a.m. with possible discharge in 24 hours once cardiology clears. The impression and plan of care has been dictated by Suzette Stout, nurse practitioner as directed. MD Arleth I have performed a history and examination and MDM of this patient, discussed the same with the dictator, and agree with the dictator's assessment and plan as written ,documented as a scribe. Based on total visit time, I have performed more than 50% of the visit. Any additional findings or plans will be noted. Objective - Vital Signs Vital signs: Vital Signs Temp 97.9 F 12/01/21 08:00 Pulse 120 H 12/01/21 08:00 Resp 18 12/01/21 08:00 BP 113/78 12/01/21 08:00 Pulse Ox 97 12/01/21 08:00 FiO2 Intake & Output 11/30/21 12/01/21 12/01/21 18:59 06:59 18:59 Intake Total 236 348.167 Balance 236 348.167 Weight 93.123 kg Intake: Intake, IV Titration 348.167 Amount Heparin Sod,Pork in 0.45% 108.167 NaCl 25,000 unit In 0.45 % NaCl 1 250ml.bag @ 10. 738 UNITS/KG/HR 10 mls/hr IV .Q24H [facility] Rx#: [id number] Sodium Chloride 0.9% 1, 240 000 ml @ 20 mls/hr IV . Q24H [facility] Rx#:[id number] Oral 236 Other: Voiding Method Toilet - Labs CBC & Chem 7: 12/01/21 02:34 12/01/21 02:34 Labs: Abnormal Lab Results - Last 24 Hours (Table) 11/30/21 12/01/21 Range/Units 10:15 02:34 APTT 53.2 H (22.0-30.0) sec Glucose 109 H (74-99) mg/dL
[2021-12-01] MEDS ORDERED: ACETAMINOPHEN TAB 325 MG TAB PO PRN (20:07)
[2021-12-02] MEDS: HEPARIN SOD,PORK IN 0.45% NACL 25,000 UNIT in 0.45% NACL 1 250ML.BAG IV SCH ×2 (07:03→22:26)
[2021-12-02] MEDS: NICOTINE 14MG/24HR PATCH TRANSDERM SCH (09:03)
[2021-12-02] MEDS: atenoloL 25 MG TAB PO SCH ×2 (09:03→20:33)
[2021-12-02] MEDS: DILTIAZEM 125 MG in SODIUM CHLORIDE 0.9% 100 ML IV SCH (09:03)
[2021-12-02] MEDS: HEPARIN SODIUM 1,000 UN/ML (10ML VL) IV PRN (10:22)
[2021-12-02] MEDS: ALPRAZolam 0.25 MG TAB PO PRN ×2 (13:11→20:33)
[2021-12-02] MEDS: SODIUM CHLORIDE 0.9% 1,000 ML IV SCH (14:04)
--- NOTE | 2021-12-02 15:32 | P.PN ---
Subjective This is a 40-year-old male with a past medical history significant for paroxysmal atrial fibrillation, anxiety, and nicotine dependence. Patient used to follow in the office with Dr. Pearson, last seen in 2013, He currently does not follow with a ruffler. We have been asked to see the patient in consultation for atrial fibrillation with RVR. Patient presents to the ER with complaint of palpitations. 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 He states after this he began to have symptoms of palpitations. He states his symptoms are similar to when he's been in A. fib before and decided to present to the emergency department for further evaluation. Denies any shortness of breath, chest pain, lightheadedness, dizziness, syncope or near syncope. Denies history of CAD, OR, Stroke, Diabetes, Hypertension. He currently smokes marijuana and cigarettes 1 PPD. He occasionally drinks alcohol. 12/01/2021 Patient seen and examined at bedside, feeling well, however frustrated that he is still in A fib and missing a family trip to [place]. He continues to be in A fib HR 80s-120s. His cardizem drip was stopped overnight. Echo revealed EF 5560 percent, no significant wall motion or valvular abnormalities. No pericardial effusion 12/02 Patient seen and examined. Patient still in A. fib with heart rates predominantly 80s to 90s however still fairly symptomatic with palpitations and shortness breath with activity. Did not have cardioversion performed. PHYSICAL EXAM: VITAL SIGNS: Reviewed. GENERAL: Well-developed in no acute distress. HEENT: Neck supple. No JVD LUNGS: Respirations even and unlabored. Lungs essentially clear to auscultation bilaterally. HEART: Irregular rate and rhythm. S1 and S2 heard. ABDOMEN: Soft. Nondistended. Nontender. EXTREMITIES: Normal range of motion. No clubbing or cyanosis. Peripheral pul ses intact. No lower extremity edema NEUROLOGIC: Awake and alert. Oriented x 3. ASSESSMENT: Palpitations Paroxysmal atrial fibrillation with RVR [id number] score 0 Anxiety Nicotine dependence PLAN: IV amiodarone for chemical cardioversion. Hopeful discharge in next 24 hours if converts. May consider pelvic pocket approach with prophenone if continues to have Afib episodes in the future. Objective - Vital Signs Vital signs: Vital Signs Temp 97.1 F L 12/02/21 12:00 Pulse 60 12/02/21 12:00 Resp 18 12/02/21 12:00 BP 104/72 12/02/21 12:00 Pulse Ox 94 L 12/02/21 12:00 FiO2 Intake & Output 12/01/21 12/02/21 12/02/21 18:59 06:59 18:59 Intake Total 495.833 25 230.060 Balance 495.833 25 230.060 Intake: Intake, IV Titration 141.833 25 230.060 Amount Diltiazem 125 mg In 25 Sodium Chloride 0.9% 100 ml @ 5 MG/HR 5 mls/hr IV .Q24H [facility] Rx#:[id number] Heparin Sod,Pork in 0.45% 141.833 230.060 NaCl 25,000 unit In 0.45 % NaCl 1 250ml.bag @ 10. 738 UNITS/KG/HR 10 mls/hr IV .Q24H [facility] Rx#: [id number] Oral 354 0 Other: Voiding Method Toilet # Voids 1 # Bowel Movements 0 - Labs CBC & Chem 7: 12/01/21 02:34 12/01/21 02:34 Labs: Abnormal Lab Results - Last 24 Hours (Table) 12/02/21 Range/Units 07:01 APTT 36.1 H (22.0-30.0) sec
[2021-12-02] MEDS ORDERED: DEXTROSE 5% IN WATER 100 ML with AMIODARONE 150 MG IV ONE (15:50)
[2021-12-02] MEDS ORDERED: AMIODARONE 360 MG in DEXTROSE 5% IN WATER 200 ML IV ONE ×2 (16:00)
--- NOTE | 2021-12-02 16:04 | P.PN ---
Subjective Progress Note Date: 12/02/21 This is a 40-year-old male who was recently admitted with atrial fibrillation RVR and being closely monitored by cardiology. Patient maintained on IV heparin drip along with Cardizem. Patient was rate controlled until this morning heart rate went up into the 120s and patient was placed back on Cardizem along with heparin with cardiology following. Patient reports he does not follow with a powder compounder in the outpatient setting and does not have any insurance and cannot afford this. Patient is extremely anxious as he was to leave for [place] on a family trip today. Patient also has been smoking approximately 1 pack per day cigarettes and will add nicotine packs and anxiety med as needed. Patient is afebrile and denies chest pain. Patient denies shortness of breath. 12/02/2021 Patient evaluated today and was placed back on IV cardizem at 5ml/hour for RVR in the 120-130's around 630 am. Patient is maintained on IV heparin as well with cardiology following. Patient is afebrile and denies chest pain or shortness of breath. Recommend repeat labs in am and will continue with telemetry monitoring. Review of systems: Constitutional: No reports of fatigue, fever, or chills, reports some increased anxiety Cardiovascular: No reports of chest pain, reports palpitations Respiratory: No reports of shortness of breath or cough GI: no reports of nausea, no reports of of vomiting : No reports of dysuria or retention Neurovascular: no reports of weakness All medications have been reviewed Active Medications Acetaminophen (Acetaminophen Tab 325 Mg Tab) 650 mg PO Q6HR PRN PRN Reason: Fever and/ or Pain Last Admin: 12/01/21 21:49 Dose: 650 mg Alprazolam (Alprazolam 0.25 Mg Tab) 0.25 mg PO TID PRN PRN Reason: Anxiety Atenolol (Atenolol 25 Mg Tab) 25 mg PO BID [facility] Last Admin: 12/02/21 09:03 Dose: 25 mg Heparin Sodium (Porcine) (Heparin Sodium 1,000 Un/Ml (10ml Vl)) 0 unit IV PER PROTOCOL PRN; Protocol PRN Reason: Low PTT Last Admin: 12/02/21 10:22 Dose: 2,328 unit Heparin Sodium/Sodium Chloride (25,000 unit/ Sodium Chloride) 250 mls @ 10 mls/hr IV .Q24H [facility]; Protocol Last Titration: 12/02/21 10:23 Dose: 15.738 units/kg/hr, 14.656 mls/hr Sodium Chloride (Saline 0.9%) 1,000 mls @ 20 mls/hr IV .Q24H [facility] Last Admin: 12/01/21 16:25 Dose: Not Given Diltiazem HCl 125 mg/ Sodium (Chloride) 125 mls @ 5 mls/hr IV .Q24H [facility] Last Admin: 12/02/21 09:03 Dose: infusing Naloxone HCl (Naloxone 0.4 Mg/Ml 1 Ml Vial) 0.2 mg IV Q2M PRN PRN Reason: Opioid Reversal Nicotine (Nicotine 14mg/24hr Patch) 1 patch TRANSDERM DAILY [facility] Last Admin: 12/02/21 09:03 Dose: 1 patch PHYSICAL EXAMINATION: GENERAL: The patient is alert and oriented x4, Well developed, well nourished. HEENT: Pupils are round and equally reacting to light. EOMI. no scleral icterus. No conjunctival pallor. Normocephalic, atraumatic. No pharyngeal erythema. No thyromegaly. CARDIOVASCULAR: S1 and S2 muffled, irregular,rapid PULMONARY: diminished breath sounds bilaterally with no wheezing or rhonchi noted. ABDOMEN: soft. Nontender on exam. obese. non-distended, normoactive bowel sounds. No palpable organomegaly. MUSCULOSKELETAL: No joint swelling or deformity. EXTREMITIES: No cyanosis, clubbing, or pedal edema. NEUROLOGICAL: Gross neurological examination did not reveal any focal deficits. SKIN: No rashes. Assessment: Atrial fibrillation paroxysmal with a fast ventricular rate History of atrial fibrillation history of anxiety Continued ongoing nicotine dependence Continued arrow on a use GI prophylaxis DVT prophylaxis Full code Plan: Recommend to continue with current medications and management cardiology followi ng. Patient continues to be in atrial fibrillation with uncontrolled rate and being placed back on IV Cardizem yet again this am for HR in the 120-130's. Recommend to continue IV heparin. Patient takes atenolol normally and medications are being adjusted per cardiology. Recommend repeat labs in the a.m. and continued telemetry. The impression and plan of care has been dictated as a scribe by Suzette Stout, nurse practitioner as directed. MD Arleth I have performed a history and examination and MDM of this patient, discussed the same with the dictator and has been documented as a scribe. Based on total visit time, I have performed more than 50% of the visit. Objective - Vital Signs Vital signs: Vital Signs Temp 98.7 F 12/02/21 08:30 Pulse 84 12/02/21 08:30 Resp 18 12/02/21 08:30 BP 102/67 12/02/21 08:30 Pulse Ox 84 L 12/02/21 08:30 FiO2 Intake & Output 12/01/21 12/02/21 12/02/21 18:59 06:59 18:59 Intake Total 495.833 25 187.417 Balance 495.833 25 187.417 Intake: Intake, IV Titration 141.833 25 187.417 Amount Diltiazem 125 mg In 25 Sodium Chloride 0.9% 100 ml @ 5 MG/HR 5 mls/hr IV .Q24H [facility] Rx#:[id number] Heparin Sod,Pork in 0.45% 141.833 187.417 NaCl 25,000 unit In 0.45 % NaCl 1 250ml.bag @ 10. 738 UNITS/KG/HR 10 mls/hr IV .Q24H [facility] Rx#: [id number] Oral 354 0 Other: Voiding Method Toilet # Voids 1 - Labs CBC & Chem 7: 12/01/21 02:34 12/01/21 02:34 Labs: Abnormal Lab Results - Last 24 Hours (Table) 12/02/21 Range/Units 07:01 APTT 36.1 H (22.0-30.0) sec
[2021-12-02] MEDS: AMIODARONE 450 MG in DEXTROSE 5% IN WATER 250 ML IV SCH ×2 (22:26)
[2021-12-03 03:44] VITALS: RESP 16
[2021-12-03] MEDS: atenoloL 25 MG TAB PO SCH (08:18)
[2021-12-03] MEDS: NICOTINE 14MG/24HR PATCH TRANSDERM SCH (08:18)
[2021-12-03] MEDS: SODIUM CHLORIDE 0.9% 1,000 ML IV SCH (09:57)
[2021-12-03] MEDS: ALPRAZolam 0.25 MG TAB PO PRN (10:34)
[2021-12-03] MEDS: AMIODARONE 450 MG in DEXTROSE 5% IN WATER 250 ML IV SCH ×2 (13:21)
[2021-12-03] MEDS: HEPARIN SOD,PORK IN 0.45% NACL 25,000 UNIT in 0.45% NACL 1 250ML.BAG IV SCH (14:55)
[2021-12-03 15:16] VITALS: BP 116/74; PULSE 66; TEMP 98
--- NOTE | 2021-12-03 15:20 | P.PN ---
Subjective This is a 40-year-old male with a past medical history significant for paroxysmal atrial fibrillation, anxiety, and nicotine dependence. Patient used to follow in the office with Dr. Pearson, last seen in 2013, He currently does not follow with a oncology coordinator. We have been asked to see the patient in consultation for atrial fibrillation with RVR. Patient presents to the ER with complaint of palpitations. 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 He states after this he began to have symptoms of palpitations. He states his symptoms are similar to when he's been in A. fib before and decided to present to the emergency department for further evaluation. Denies any shortness of breath, chest pain, lightheadedness, dizziness, syncope or near syncope. Denies history of CAD, AL, Stroke, Diabetes, Hypertension. He currently smokes marijuana and cigarettes 1 PPD. He occasionally drinks alcohol. 12/01/2021 Patient seen and examined at bedside, feeling well, however frustrated that he is still in A fib and missing a family trip to [place]. He continues to be in A fib HR 80s-120s. His cardizem drip was stopped overnight. Echo revealed EF 5560 percent, no significant wall motion or valvular abnormalities. No pericardial effusion 12/02 Patient seen and examined. Patient still in A. fib with heart rates predominantly 80s to 90s however still fairly symptomatic with palpitations and shortness breath with activity. Did not have cardioversion performed. 12/03 Patient seen and examined. Patient denies any chest pain or pressure. He was placed on amiodarone and converted to sinus approximate 2 hours ago. Has been feeling better since been in sinus. PHYSICAL EXAM: VITAL SIGNS: Reviewed. GENERAL: Well-developed in no acute distress. HEENT: Neck supple. No JVD LUNGS: Respirations even and unlabored. Lungs essentially clear to auscultation bilaterally. HEART: Irregular rate and rhythm. S1 and S2 heard. ABDOMEN: Soft. Nondistended. Nontender. EXTREMITIES: Normal range of motion. No clubbing or cyanosis. Peripheral pul ses intact. No lower extremity edema NEUROLOGIC: Awake and alert. Oriented x 3. ASSESSMENT: Palpitations Paroxysmal atrial fibrillation with RVR [id number] score 0 Anxiety Nicotine dependence PLAN: Patient converted to sinus rhythm and feels back to his normal self. Discontinue amiodarone as well as heparin given chads vasc score of 0. Okay for discharge home on his home aspirin as well as atenolol 25 twice a day. Objective - Vital Signs Vital signs: Vital Signs Temp 98.0 F 12/03/21 15:15 Pulse 66 12/03/21 15:15 Resp 16 12/03/21 15:15 BP 116/74 12/03/21 15:15 Pulse Ox 97 12/03/21 15:15 FiO2 Intake & Output 12/02/21 12/03/21 12/03/21 18:59 06:59 18:59 Intake Total 230.060 611.605 490.196 Balance 230.060 611.605 490.196 Intake: Intake, IV Titration 230.060 371.605 490.196 Amount Amiodarone 360 mg In 99 Dextrose 5% in Water 200 ml @ 1 MG/MIN 33.333 mls/ hr IV .Q6H [facility] Rx#: [id number] Amiodarone 450 mg In 96 248.616 Dextrose 5% in Water 250 ml @ 0.5 MG/MIN 16.667 mls/hr IV .Q15H [facility] Rx#: [id number] Heparin Sod,Pork in 0.45% 230.060 176.605 241.58 NaCl 25,000 unit In 0.45 % NaCl 1 250ml.bag @ 10. 738 UNITS/KG/HR 10 mls/hr IV .Q24H [facility] Rx#: [id number] Oral 240 Other: Voiding Method Toilet # Voids 2 1 # Bowel Movements 0 - Labs CBC & Chem 7: 12/01/21 02:34 12/01/21 02:34 Labs: Abnormal Lab Results - Last 24 Hours (Table) 12/02/21 12/03/21 Range/Units 16:05 07:25 APTT 65.3 H 55.0 H (22.0-30.0) sec
--- NOTE | 2021-12-05 15:16 | P.DS ---
Providers Date of admission: 11/30/21 11:21 Expected date of discharge: 12/03/21 Attending physician: Johann Stokes MD Consults: 11/30/21 10:16 Consult Physician Routine Consulting Provider: Jorje Pearson Consult Reason/Comments: afib rvr Do you want consulting provider notified?: Yes Primary care physician: Melanie Ortiz Hospital Course: Final Diagnosis Atrial fibrillation paroxysmal with a fast ventricular rate History of atrial fibrillation history of anxiety Continued ongoing nicotine dependence Continued marijuana use GI prophylaxis DVT prophylaxis Full code Discharge disposition Patient is being discharged in a stable condition with guarded prognosis to home with home care. Patient will follow-up with Dr. Navarro in the outpatient setting upon discharge. Patient will also need to follow-up with cardiology on discharge. Patient is to continue with his atenolol and aspirin per cardiology. Total time taken is greater than 35 minutes. Hospital course This is an 40-year-old male who was recently admitted with atrial fibrillation with rapid ventricular rate and being closely monitored. Patient was started on IV heparin along with a Cardizem drip and transition to sinus rhythm although required being placed back on Cardizem on 2 separate occasions with continued RVR. Patient was then started on amiodarone and converted and was closely monitored by cardiology recommending outpatient follow-up. Patient is maintained on atenolol along with aspirin and currently does not have health insurance and cannot afford it. Social work services provided for patient to follow-up with in regards to obtaining resources or insurance assistance. Patient continues to use tobacco and strongly encourage the patient to discontinue tobacco use and exposure. Patient will need close outpatient follow-up with cardiology along with his primary care provider. Currently no reports of chest pain, shortness of breath, or palpitations. Patient is afebrile. No reports of nausea or vomiting and patient is tolerating diet. Patient will be discharged home today. Guarded prognosis. On exam vital signs are stable. Cardio S1, S2 are muffled. Respiratory system shows diminished breath sounds at the bases with no wheezing or rhonchi noted. Abdomen is soft and nontender. Nervous system shows no focal deficits. Please refer to medication reconciliation sheet for a list of medications. The impression and plan of care has been dictated by Suzette Stout, Nurse Practitioner as directed. Dr. Jong MD I have performed a history and examination and MDM of this patient, discussed the same with the dictator, and agree with the dictator's assessment and plan as written ,documented as a scribe. Based on total visit time, I have performed more than 50% of the visit. Patient Condition at Discharge: Fair Plan - Discharge Summary New Discharge Prescriptions: New atenoloL [Tenormin] 25 mg PO BID 30 Days #60 tab Continue atenoloL 25 mg PO BID Aspirin EC [Ecotrin Low Dose] 81 mg PO HS 30 Days #30 tab Discharge Medication List atenoloL 25 mg PO BID 09/12/20 [History] Aspirin EC [Ecotrin Low Dose] 81 mg PO HS 30 Days #30 tab 12/03/21 [Rx] atenoloL [Tenormin] 25 mg PO BID 30 Days #60 tab 12/03/21 [Rx] Follow up Appointment(s)/Referral(s): Angel Navarro MD [Primary Care Provider] - 1-2 days (Office closed, please call office to schedule appointment.) Ayden Padilla DO [STAFF PHYSICIAN] - 1 Week (Office closed, please call office to schedule appointment.) Jorje Pearson MD [STAFF PHYSICIAN] - 1 Week (Office closed, please call office to schedule appointment.) Patient Instructions/Handouts: A-fib (Atrial Fibrillation) (DC) Activity/Diet/Wound Care/Special Instructions: Activity limited until follow up Follow up with cardiology on discharge follow up with primary care provider on discharge continue taking medications as prescribed continue heart healthy diet avoid tobacco use Social work ([place]): Discharge/Stand Alone Forms: Community Resources Discharge Disposition: HOME SELF-CARE
== END 2021-12-03 16:35 | disposition home or self-care (01) | DRG 310 ==
LOC: EC 09:33 → 3SCARD 11:21
PROVIDERS: ADMIT Internal Medicine; ATTEND Internal Medicine
DX: I48.0 Paroxysmal atrial fibrillation (principal); F17.210 Nicotine dependence, cigarettes, uncomplicated; F41.9 Anxiety disorder, unspecified; Z79.899 Other long term (current) drug therapy; Z79.82 Long term (current) use of aspirin; Z28.310 Unvaccinated for COVID-19; Z83.2 Family history of diseases of the blood and blood-forming organs and certain disorders involving the immune mechanism
CPT/HCPCS: 36415; 71045; 80048; 83735; 84443; 84484; 85025; 85730; 93005; 93306; 96365; 96366; 96368; 99291